=== PATIENT | male | born 1975 | race Caucasian/White ===

== ENCOUNTER 2025-03-26 14:06 | Day surgery (SDC) | payer OTHER, BC ==
--- NOTE | 2025-03-19 14:08 | ELECTROCARDIOGRAPH REPORT ---
[facility] Test Date: 2025-03-19 Test Time: 14:06:53 Pat Name: OUMAR CHAN Department: [facility]-PRE-OP Patient ID: [id number] Room: Gender: M [employer]: : 1975 Requested By: ROHINI PIPER Order Number: [id number] Reading MD: Dr. KATI Flower Measurements Intervals [place] Rate: 64 P: 63 KS: 153 QRS: 52 QRSD: 87 T: 4 QT: 385 QTc: 398 Interpretive Statements Sinus rhythm Borderline T wave abnormalities Electronically Signed On 03-19-2025 17:35:[address] KATI Flower Please click the below link to view image of tracing.
[2025-03-19 14:22] LABS: MEAN PLATELET VOLUME 7.8 FL (7.4-10.4); PRE OP HEMATOCRIT 43.7 % (42.0-52.0); PRE OP HEMOGLOBIN 14.7 g/dL (14.0-17.9); PRE OP PLATELET COUNT 286 X10'3 (140-440); PRE OP WHITE BLOOD COUNT 8.0 10'3 (4.8-10.8); RED CELL DISTRIBUTION WIDTH 13.7 % (11.5-14.5)
[2025-03-19 14:41] LABS: CREATININE 0.98 MG/DL (0.60-1.10); PRE OP ANION GAP 6 (8-16); PRE OP AST 41 U/L (10-37); PRE OP BILIRUB, TOTAL 0.6 MG/DL (0.0-1.0); PRE OP GLUCOSE 86 MG/DL (70-104); PRE OP POTASSIUM 3.7 MMOL/L (3.4-5.1); PRE OP SODIUM 144 MMOL/L (135-145); TOTAL CARBON DIOXIDE 30.2 MMOL/L (24-32); eGFR 81 ML/MIN
[2025-03-19 14:45] LABS: PRE OP ALT 88 U/L (30-65)
[~2025-03-26] VITALS: Ht 175.3 cm; Wt 76.8 kg
[2025-03-26] VITALS (15 sets, daily range): BP systolic 109–132; BP diastolic 73–92; PULSE 56–85; RESP 10–17; TEMP 98; O2SAT 95–100
[2025-03-26] MEDS: ceFAZolin 2gm/dext,iso 50mL 50 ML IV ONE (05:30)
[~2025-03-26 14:06] MED LIST: CHOL10006 PO; LANS15CA18 PO; TIZA-205 PO; TRAM50TA2 PO; TURMERIC/CURCUMIN PO
[2025-03-26] MEDS: ringers solution, lacted 1,000 ML IV SCH (14:53)
[2025-03-26] MEDS ORDERED: BUPIVAcaine 2.5mg/ml inj 50ml vial (contains preservative) ONE (17:30)
[2025-03-26] MEDS: aprepitant 40mg capsule PO ONE (17:33)
[2025-03-26] MEDS ORDERED: HYDROmorphone/PF 0.2 MG/ML SYRINGE IV PRN (17:40)
[2025-03-26] MEDS ORDERED: labetalol 20mg/4ml (5mg/ml) syringe IV PRN (17:40)
[2025-03-26] MEDS ORDERED: ringers solution, lacted 1,000 ML IV SCH (17:40)
[2025-03-26] MEDS ORDERED: hydrALAZINE 20mg/ml inj. IV PRN (17:40)
[2025-03-26] MEDS ORDERED: midazolam 1 mg/ML 2ml injection ONE (17:52)
[2025-03-26] MEDS ORDERED: LIDOcaine 1% 30ml preserv. free vial ONE (18:01)
[2025-03-26] MEDS ORDERED: LIDOcaine 1%/PF 5ML 10 MG/ML VIAL ONE ×2 (18:07)
[2025-03-26] MEDS ORDERED: propofol inj 20 ML IV ONE (18:07)
[2025-03-26] MEDS ORDERED: dexamethasone sod phosphate 4mg/ml inj. ONE (18:07)
[2025-03-26] MEDS ORDERED: ondansetron/PF 4mg/2ml inj ONE (18:07)
[2025-03-26] MEDS ORDERED: rocuronium 10mg/ml inj IV ONE (18:07)
[2025-03-26] MEDS ORDERED: fentaNYL /PF 50mcg/ml 5ml ampule ONE (18:07)
[2025-03-26] MEDS: LIDOcaine 1% 30ml preserv. free vial IJ ONE (18:10)
[2025-03-26] MEDS: BUPIVAcaine/PF 2.5 mg/ml (0.25%) 30ml vial IJ ONE (18:10)
[2025-03-26] MEDS ORDERED: glycopyrrolate 0.2mg/ml inj ONE (18:51)
[2025-03-26] MEDS: morphine 4 MG/ML inj SYRINge IV PRN (19:27)
[2025-03-26] MEDS: acetaminophen 1,000mg/100ml IV 100 ML IV PRN (19:28)
--- NOTE | 2025-03-26 19:35 | OPERATIVE REPORT ---
Operative Report Providers to CC CC: PETEY PIPER MD ~ Date of Procedure: Mar 26, 2025 Pre-Operative Diagnosis: Left inguinal hernia Post-Operative Diagnosis Left inguinal hernia Procedure Performed Robotic assisted, laparoscopic left inguinal hernia repair with mesh Surgeon: Petey Piper MD FACS [facility] Coordinator None Anesthesiologist: Stacie Smith Type of Anesthesia: General Findings: Fairly small indirect left inguinal hernia Wound class I Complications None Prosthetics\Implants used: Large left Dextile mesh Estimated Blood Loss: Minimal Specimen Removed: None Description of Procedure: Patient was brought to the operating room and identified by the nursing staff and the attending physician. Patient was placed supine and general anesthesia was induced. Patient's abdomen was prepped and draped in standard sterile fashion. Preoperative antibiotics were given. Veress needle technique was used to gain access to the abdomen in the left upper quadrant at morales's point. Abdomen was insufflated without incident. Optical 12 mm port was used in the left mid abdomen to gain access to the abdomen. There were some adhesions noted in the midline, however, there was adequate space for placement of additional 8.5 mm robotic trocars in the left periumbilical space and right mid abdomen. These were placed under laparoscopic visualization. The right hemipelvis was examined and showed no evidence of right inguinal hernia. An indirect inguinal hernia was identified on the left side. Hernia sac was quite small in size. A rent was created in the peritoneum from the median umbilical fold and carried out laterally towards the anterior superior iliac spine. Preperitoneal flap was created and carried down to the symphysis pubis. The retropubic space of Retzius was developed and the bladder swept medially. Dissection was carried out laterally until an indirect hernia sac was identified. This was fairly small in size. Hernia sac was completely dissected away from the cord structures and reduced. Just lateral and anterior to this, there was a 2nd defect with herniated preperitoneal fat. This was an unusual hernia, atypical for inguinal site. The preperitoneal fat was reduced. The critical view of the myopectineal orifice was achieved. Dissection was carried out laterally to allow space for mesh deployment. A large Dextile mesh and suture was passed intra-abdominally. Mesh was laid in the preperitoneal space covering both indirect, direct, and potential femoral and obturator hernias. Mesh laid without wrinkles or folds. 3 tacking sutures using 0 Ethibond were used to fix the mesh at the symphysis pubis, rectus abdominis, and just anterior to the anterior superior iliac spine. The peritoneal rent was then closed with running, 2/0, absorbable locking suture. Williams were retrieved. Abdomen was deflated and secondary trochars removed. Fascia at the umbilical port site was closed with 0 Vicryl sutures. Skin incisi ons were closed with 4-0 Monocryl sutures in a subcuticular fashion. Sterile dressings were applied. Patient was awakened and taken to the postanesthesia care unit in stable condition. Counts repoted as correct: Yes PETEY PIPER MD Mar 26, 2025 19:35
[2025-03-26] MEDS: HYDROmorphone/PF 0.2 MG/ML SYRINGE IV PRN (19:41)
[2025-03-26] MEDS: HYDROcodone/acetaminophen 5mg/325mg tablet PO PRN (20:36)
[2025-03-26] MEDS: ondansetron/PF 4mg/2ml inj IV PRN (20:55)
[2025-03-26] MEDS: LidoCAINE 2% Topical Jelly 11mL syringe (UROJET) TOP ONE (22:16)
[2025-03-26] MEDS ORDERED: LidoCAINE 2% Topical Jelly 11mL syringe (UROJET) TOP ONE (23:20)
[2025-03-27] VITALS: BP 118/79; PULSE 81; RESP 17; O2SAT 99
--- NOTE | 2025-03-27 00:11 | OPERATIVE REPORT ---
DATE OF SURGERY: 03/26/2025 DICTATING PHYSICIAN: Jhon Alfaro MD PREOPERATIVE DIAGNOSIS: Postoperative urinary retention. POSTOPERATIVE DIAGNOSIS: Postoperative urinary retention. OPERATIONS PERFORMED: * Flexible cystoscopy. * Almeida catheterization. SURGEON: Jhon Alfaro MD INDICATIONS: A 49-year-old male undergoing robotic hernia repair by Dr. Amezquita. The patient is unable to void in the recovery room. Apparently, he has had difficulty with catheters before with other surgeries. I am asked to consult when multiple nursing staff members were unable to place this Almeida. DESCRIPTION OF PROCEDURE: Standard prep and drape of the genitals was performed. Suspecting a urethral false passage, I prepped for flexible cystoscopy. The cystoscope was placed all the way into the bladder. The patient had mild to moderate BPH, but no stricture and no urethral false passage. The bladder interior was otherwise normal other than an elevated PVR. The cystoscope was removed and a 16-Serbian Almeida was placed atraumatically with a drainage of about 600 mL of clear yellow urine. They were instructed to remove their catheter in about 2 days' time. Apparently, that will be done at Dr. Amezquita's office. Suggested perioperative antibiotics for 48 hours after Almeida removal. Jhon Alfaro MD TID: [id number] RECEIPT: [id number] JAILYN/TERRY
== END 2025-03-27 00:09 | disposition home or self-care (01) ==
LOC: PAS 14:06
PROVIDERS: ATTEND Surgery
DX: K40.91 Unilateral inguinal hernia, without obstruction or gangrene, recurrent (principal); R33.8 Other retention of urine; K21.9 Gastro-esophageal reflux disease without esophagitis; Z79.899 Other long term (current) drug therapy; Z98.890 Other specified postprocedural states; Z91.040 Latex allergy status; Z88.8 Allergy status to other drugs, medicaments and biological substances
CPT/HCPCS: 36415; 49651; 52000; 80053; 82948; 85025; 93005; C1781; J0131; J1100; J1171; J2003; J2250; J2270; J2405; J2704; J2710; J3010; J3490; J7030; J7120; J8501; S2900; Z7506; Z7508; Z7512; A4215; A4314; A4618; C1758